=== PATIENT | female | born 1945 | race Caucasian/White ===

== ENCOUNTER 2017-05-10 08:30 | Emergency (ER) | payer OTHER ==
--- NOTE | 2017-05-10 08:48 | ED Physician Documentation ---
Skin Rash - HISTORIAN Historian: patient - HPI Stated Complaint: rash Chief Complaint: Skin Rash Onset: other (3 weeks ago ) Timing: worse Duration: worse, persistent since (3 weeks ) Location: other (bilateral arms , lips, legs ) Identified Cause?: No (rash that started 3 weeks ago ) Where: home Context: Medication Exposure: none (no new meds that she is aware of or new expsoures ) Context: Food Exposure: none Context: Other Exposure: other (none ) Further Comments: yes (she states she "always has dry skin" and she has had some issues with this rash on arms and legs but it is on and off. She states the rash on her lips which is crusting like her arms and legs started two days ago. She denies any shortness of breath or swelling in throat) - ROS CONST: denies: recent illness, fever CVS/RESP: denies: shortness of breath, cough EYES/ENT: denies: eye redness, eye itching, sore throat GI/: denies: problems urinating, vomiting, nausea MS/SKIN/LYMPH: rash NEURO/PSYCH: none. denies: headache, fainting, dizziness - PAST HX Past History: none Other History: none Surgeries/Procedures: No Immunizations: UTD Allergies/Adverse Reactions: Allergies Allergy/AdvReac Type Severity Reaction Status Date / Time No Known Drug Allergies Allergy Unverified 06/01/14 15:59 Home Medications: Ambulatory Orders Medication Instructions Recorded NK [NK] 05/10/17 - SOCIAL HX Smoking History: non-smoker Alcohol Use: none Drug Use: none - FAMILY HX Family History: none - VITAL SIGNS Vital Signs: Vital Signs Temp Pulse Resp BP Pulse Ox 98.4 F 102 H 18 118/67 95 05/10/17 08:43 05/10/17 08:43 05/10/17 08:43 05/10/17 08:43 05/10/17 08:43 - REVIEWED ASSESSMENTS Nursing Assessment Reviewed: Yes Vitals Reviewed: Yes ED Results Lab/Radiology - Lab Results Lab Results: Lab Results 05/10/17 05/10/17 08:49 08:49 WBC 7.00 K/ul K/ul (4.00-12.00) RBC 4.95 M/ul M/ul (3.90-5.20) Hgb 15.8 g/dL g/dL (12.0-16.0) Hct 47.1 % H % (34.5-46.5) MCV 95.2 fl fl (80.0-100.0) MCH 31.9 pg pg (28.0-34.0) MCHC 33.5 g/dL g/dL (30.0-36.0) RDW 12.6 % % (11.3-14.3) Plt Count 203 K/mm3 K/mm3 (130-400) Neut % (Auto) 76.2 % % (39.0-79.0) Lymph % (Auto) 12.3 % L % (16.0-50.0) [place] % (Auto) 6.5 % % (0.0-11.0) Eos % (Auto) 3.1 % % (0.0-6.8) Baso % (Auto) 0.4 (0.0-1.5) Neut # (Auto) 5.3 # k/uL # k/uL (1.4-7.7) Lymph # (Auto) 0.9 # k/uL # k/uL (0.6-4.0) [place] # (Auto) 0.5 # k/uL # k/uL (0.0-0.9) Eos # (Auto) 0.2 # k/uL # k/uL (0.0-0.6) Baso # (Auto) 0.0 # k/uL # k/uL (0.0-0.5) Reactive Lymphs % 1.5 % % (0.0-5.0) Reactive Lymphs # 0.1 # k/uL # k/uL (0.0-0.8) Sodium 144 mmol/L mmol/L (136-145) Potassium 4.1 mmol/L mmol/L (3.5-5.1) Chloride 104 mmol/L mmol/L (98-107) Carbon Dioxide 28 mmol/L mmol/L (22-30) BUN 17 mg/dL mg/dL (7-17) Creatinine 0.70 mg/dL mg/dL (0.52-1.04) Estimated Creat Clear 74 Est GFR ( Amer) > 60 (60 - ) Est GFR (Non-Af Amer) > 60 (60 - ) Glucose 112 mg/dL H mg/dL (74-106) Calcium 9.8 mg/dL mg/dL (8.4-10.2) Total Bilirubin 1.2 mg/dL mg/dL (0.2-1.3) AST 23 U/L U/L (15-46) ALT 27 U/L U/L (13-69) Alkaline Phosphatase 72 U/L U/L (38-126) Total Protein 7.4 g/dL g/dL (6.3-8.2) Albumin 4.3 g/dL g/dL (3.5-5.0) - Orders Orders: ED Orders Category Date Time Status IV Started NOW Care 05/10/17 08:48 Active CBC/PLATELET/DIFF Stat Lab 05/10/17 08:49 Completed CMP Stat Lab 05/10/17 08:49 Completed methylPREDNISolone SOD SUCC [Solu-MEDROL] Med 05/10/17 08:49 Discontinued 125 mg IVP NOW ONE Skin Rash Physical Exam - EXAM General Appearance: no acute distress, alert Skin: other (bilateral arms and upper legs with crusting rash - some yellow crusting and then puritis as well as some swelling on lips with similar crusting rash ) Location: face, extremities Character: symmetric, erythematous Symptoms: swelling, thickening, scaling, well defined border, weeping, inflammation, crusting, rough texture. No: warmth, tenderness Extremities: non-tender EENT: eyes nml inspection, other (swelling and crusting in lips ) Neck: no swelling Respiratory: no resp distress, chest non-tender, breath sounds normal CVS: reg. rate & rhythm, heart sounds nml Abdomen: non-tender, no organomegaly, nml bowel sounds, no distention Neuro/Psych: oriented x3, CN's nml as tested, motor nml, sensation nml, mood/ affect nml Discharge Clincal Impression: Skin abnormalities Referrals: Primary Doctor,No [Primary Care Provider] - 2 Days Comments: 1. Apply Silvadine cream BID x 7 days 2. Wrap with non stick dressing after silvadine cream. 3 Avoid sun 4. Bactrim DS take 1 by mouth BID x 10 days 5. Medrol dose pack as directed start 05.11.17 6. SEE A PCP CATHY and see dermatology 7. Return to ER for any concerns 8. Benadryl for itching Condition: Stable Disposition: 01 HOME, SELF-CARE Decision to Admit: NO Date of Decison to Admit: 05/10/17 Decision Time: 09:26
[2017-05-10 08:56] VITALS: BP 118/67
[2017-05-10] MEDS: methylPREDNISolone SOD SUCC 125 MG/2 ML VIAL IVP ONE (09:05)
[2017-05-10 09:13] LABS: BASOPHILS % 0.4 (0.0-1.5); EOSINOPHILS % 3.1 % (0.0-6.8); MEAN CORPUSCULAR HEMOGLOBIN 31.9 pg (28.0-34.0); MEAN CORPUSCULAR VOLUME 95.2 fl (80.0-100.0); MONOCYTES % 6.5 % (0.0-11.0); NEUTROPHILS # 5.3 # k/uL (1.4-7.7)
[2017-05-10 09:33] LABS: eGFR (African) > 60; eGFR (Non-African) > 60
== END 2017-05-10 09:50 | disposition home or self-care (01) ==
LOC: ED 08:30
DX: R21 Rash and other nonspecific skin eruption (principal)
CPT/HCPCS: 80053; 85025; J2930; 96374; 99282; S1016